=== PATIENT | male | born 1980 | race Caucasian/White ===

== ENCOUNTER 2020-11-03 22:15 | Emergency (ER) | payer OTHER ==
--- NOTE | 2020-11-03 22:43 | ER Document Report ---
ED Medical Screen (RME) - General Stated Complaint: POSSIBLE STROKE Time Seen by Provider: 11/03/20 22:40 Primary Care Provider: ELAINE RUBIO MD [Primary Care Provider] - Follow up as needed Notes: HPI: 40-year-old male with history of PTSD and anxiety presenting for varied complaints. Patient states that he felt very stressed 2 days ago, went out to sit in his truck. Patient significant other found him in the truck having jerking motions although he was communicative and not unresponsive. She states when he got inside he was crying and still twitching and jerking, seem to have difficulty speaking and communicating his thoughts. Patient states yesterday he just felt tired, today he just felt tired and slept most of the day. No fever no cough no shortness of breath no chest pain no abdominal pain no new weakness numbness or tingling in the extremities. Patient denies headache visual change today. No seizure history. PHYSICAL EXAMINATION: Patient answers all questions appropriately. No nystagmus. Gait is normal. Strength and sensation intact and equal bilateral upper and lower extremities I have greeted and performed a rapid initial assessment of this patient. A comprehensive ED assessment and evaluation of the patient, analysis of test results and completion of medical decision making process will be conducted by an additional ED providers. TRAVEL OUTSIDE OF THE [place] IN LAST 30 DAYS: No - Related Data Allergies/Adverse Reactions: No Known Allergies Allergy (Unverified 08/10/15 15:44) Past Medical History Neurological Medical History: Reports: Hx Migraine GI Medical History: Reports: Hx Gastroesophageal Reflux Disease, Hx Hiatal Hernia Psychiatric Medical History: Reports: Hx Anxiety, Hx Depression, Hx Post Traumatic Stress Disorder Past Surgical History: Reports: Hx Abdominal Surgery - GERD surgery - Immunizations Hx Diphtheria, Pertussis, Tetanus Vaccination: Yes - tetanus 2011 Physical Exam - Vital signs Vitals: Temp Pulse Resp BP Pulse Ox 98.5 F 100 20 145/79 H 99 11/03/20 22:29 11/03/20 22:29 11/03/20 22:29 11/03/20 22:29 11/03/20 22:29 Course - Vital Signs Vital signs: Temp Pulse Resp BP Pulse Ox 98.5 F 100 20 145/79 H 99 11/03/20 22:29 11/03/20 22:29 11/03/20 22:29 11/03/20 22:29 11/03/20 22:29 Doctor's Discharge - Discharge Referrals: ELAINE URBIO MD [Primary Care Provider] - Follow up as needed
[2020-11-03 23:06] LABS: ABSOLUTE EOSINOPHILS # (AUTO) 0.3 10^3/uL (0.0-0.6); ABSOLUTE LYMPHOCYTES (AUTO) 1.6 10^3/uL (0.5-4.7); ABSOLUTE MONOCYTES (AUTO) 0.3 10^3/uL (0.1-1.4); ABSOLUTE NEUT (AUTO) 3.8 10^3/uL (1.7-8.2); BASOPHILS % (AUTO) 0.8 % (0-2); EOSINOPHILS % (AUTO) 5.6 % (0-6); HEMOGLOBIN 14.1 g/dL (13.5-17.0); LYMPHOCYTES % (AUTO) 26.5 % (13-45); MEAN CORPUSCULAR HEMOGLOBIN 33.5 pg (27.0-33.4); MEAN CORPUSCULAR HGB CONC 34.5 g/dL (32.0-36.0); MEAN CORPUSCULAR VOLUME 97 fl (80-97); MONOCYTES % (AUTO) 4.7 % (3-13); PLATELET COUNT 289 10^3/uL (150-450); RED BLOOD COUNT 4.21 10^6/uL (4.35-5.55); RED CELL DISTRIBUTION WIDTH 13.1 % (11.5-14.0); SEGMENTED NEUTROPHILS % (AUTO) 62.4 % (42-78); TOTAL CELLS COUNTED % (AUTO) 100 %
[2020-11-03 23:22] LABS: APPEARANCE,URINE CLEAR; BILIRUBIN,URINE NEGATIVE (NEGATIVE); GLUCOSE, URINE NEGATIVE (NEGATIVE); KETONES,URINE TRACE mg/dL (NEGATIVE); LEUKOCYTE ESTERASE,URINE TRACE (NEGATIVE); NITRITE,URINE NEGATIVE (NEGATIVE); PROTEIN,URINE 100 mg/dL (NEGATIVE); URINE SPECIFIC GRAVITY 1.035
[2020-11-03 23:23] LABS: COLOR,URINE YELLOW
[2020-11-03 23:27] LABS: ALBUMIN 4.1 g/dL (3.5-5.0); ALKALINE PHOSPHATASE 72 U/L (38-126); ANION GAP 6 (5-19); ASPARTATE AMINO TRANSFERASE 26 U/L (17-59); BILIRUBIN,TOTAL 0.2 mg/dL (0.2-1.3); BLOOD UREA NITROGEN 13 mg/dL (7-20); CALCIUM 9.5 mg/dL (8.4-10.2); CARBON DIOXIDE 26 mmol/L (22-30); CHLORIDE 107 mmol/L (98-107); GLUCOSE 110 mg/dL (75-110); POTASSIUM 4.4 mmol/L (3.6-5.0); TOTAL PROTEIN 6.6 g/dL (6.3-8.2); URINE BARBITURATES SCREEN NEGATIVE; URINE COCAINE SCREEN NEGATIVE; URINE METHADONE SCREEN NEGATIVE; URINE PHENCYCLIDINE SCREEN NEGATIVE
[2020-11-03 23:29] LABS: ALCOHOL < 10 mg/dL (NONE DETECTED)
[2020-11-03 23:36] LABS: URINE BENZODIAZEPINES SCREEN UNCONFIRMED POSITIVE; URINE MARIJUANA (THC) SCREEN UNCONFIRMED POSITIVE
--- NOTE | 2020-11-03 23:36 | RADIOLOGY REPORT (SQ) ---
EXAM DESCRIPTION: CT HEAD WITHOUT IV CONTRAST COMPLETED DATE/TME: 11/03/2020 23:00 CLINICAL HISTORY: 40 years, Male, jerking motions EXAM DESCRIPTION: CT HEAD WITHOUT CLINICAL HISTORY: jerking motions COMPARISON: None Available TECHNIQUE: Contiguous axial CT images of the head were obtained. Coronal and sagittal reconstructions were created from the axial data. This exam was performed according to our departmental dose-optimization program, which includes automated exposure control, adjustment of the mA and/or kV according to patient size and/or use of iterative reconstruction technique. FINDINGS: There is moderate mucosal thickening in the right maxillary sinus. There is no evidence of acute mass, mass effect, midline shift or hemorrhage. The ventricles and extra-axial CSF spaces are unremarkable. The brain parenchyma appears normal for the patient's age. No acute abnormalities of the bones is seen. IMPRESSION: No acute intracranial abnormality.
[2020-11-04] MEDS ORDERED: THIAMINE HCL 100 MG, FOLIC ACID 1 MG in NORMAL SALINE 250 ML IV ONE (03:50)
[2020-11-04] MEDS ORDERED: NORMAL SALINE 1000 ML 1,000 ML IV ONE (03:51)
[2020-11-04] MEDS ORDERED: CLONAZEPAM 1 MG TABLET PO ONE (03:52)
[2020-11-04] MEDS ORDERED: THIAMINE HCL INJ 200 MG/2 ML VIAL ONE (04:05)
[2020-11-04] MEDS ORDERED: FOLIC ACID INJ 5 MG/1 ML 10 ML VIAL ONE (04:25)
--- NOTE | 2020-11-04 06:56 | ER Document Report ---
ED General - General Chief Complaint: Altered Mental Status Stated Complaint: POSSIBLE STROKE Time Seen by Provider: 11/03/20 22:40 Primary Care Provider: ELAINE RUBIO MD [Primary Care Provider] - Follow up in 1 week GLENYS KING DO [ACTIVE STAFF] - Follow up in 1 week Notes: 40-year-old male history of heavy daily drinking presents with seizure like episode approximately 1 day. Patient recently decreased his alcohol intake, had previously consumed approximately 1 12 pack of beer every day chronically. Befo re episode patient felt a strange sensation that he cannot further describe and then he felt like his arms were moving without his control which lasted for few minutes. After that he felt "foggy "and has felt somewhat tired for the last few days. Patient endorses having had a brief mild headache for short time on the day that he had the seizure-like episode but says that this is like many headaches that he has had in his lifetime and was not alarming to him and had no associated symptoms and resolved without intervention. Patient also endorses having had months of intermittent feeling like a sharp pain is shooting down his left arm associated with numbness in his arm. Patient denies any prior seizure episodes, headache, focal weakness, neck pain or stiffness, fever, trauma, chest pain, shortness of breath, memory loss, change in vision/speech/gait, anticoagulation, bleeding diatheses, IV drug use TRAVEL OUTSIDE OF THE [place] IN LAST 30 DAYS: No - Related Data Allergies/Adverse Reactions: No Known Allergies Allergy (Unverified 08/10/15 15:44) Home Medications: depakote, sertraline Past Medical History - General Information source: Patient, Relative - Social History Smoking Status: Never Smoker Family History: Arthritis, Hyperlipidemia, Hypertension, Malignancy Neurological Medical History: Reports: Hx Migraine GI Medical History: Reports: Hx Gastroesophageal Reflux Disease, Hx Hiatal Hernia Psychiatric Medical History: Reports: Hx Anxiety, Hx Depression, Hx Post Traumatic Stress Disorder Past Surgical History: Reports: Hx Abdominal Surgery - GERD surgery - Immunizations Hx Diphtheria, Pertussis, Tetanus Vaccination: Yes - tetanus 2011 Review of Systems - Review of Systems Notes: REVIEW OF SYSTEMS: CONSTITUTIONAL : Denies fever, chills, or sweats. EENT: Denies recent cold/sinus symptoms, denies throat pain CARDIOVASCULAR: Denies chest pain, WILLIAM RESPIRATORY: Denies cough, denies shortness of breath. GASTROINTESTINAL: Denies abdominal pain, nausea/vomiting. GENITOURINARY: Denies difficulty urinating, painful urination. MUSCULOSKELETAL: Denies neck pain, back pain. SKIN: Denies rash or skin lesions. HEMATOLOGIC : Denies easy bruising or bleeding. LYMPHATIC: Denies swollen, enlarged glands. NEUROLOGICAL: Denies headache, denies change in gait. PSYCHIATRIC: Denies SI or HI Physical Exam - Vital signs Vitals: Temp Pulse Resp BP Pulse Ox 98.5 F 100 20 145/79 H 99 11/03/20 22:29 11/03/20 22:29 11/03/20 22:29 11/03/20 22:29 11/03/20 22:29 - Notes Notes: PHYSICAL EXAMINATION: GENERAL: Well-appearing, well-nourished and in no acute distress. HEAD: Atraumatic, normocephalic. EYES: Pupils equal round and appropriate constriction, sclera anicteric, conjunctiva are normal. ENT: nares patent, moist mucous membranes. NECK: Normal range of motion, supple without lymphadenopathy LUNGS: Breath sounds clear to auscultation bilaterally and equal. No wheezes rales or rhonchi. HEART: Regular rate and rhythm without murmurs ABDOMEN: Soft, nontender, no guarding, no masses, no CVAT EXTREMITIES: Normal range of motion, no pitting or edema. No cyanosis. NEUROLOGICAL: Awake, alert, conversing appropriately, moves all extremities spontaneously, 5 out of 5 strength in all extremities, normal sensation in all extremities, normal [id number] bilaterally, cranial nerves II through XII intact bilaterally, steady non-ataxic narrow-based gait and tandem gait, no trem ors with outstretched hands or finger to finger, no tongue fasciculations, no psychomotor agitation PSYCH: Normal mood, normal affect. SKIN: Warm, Dry, normal turgor, no rashes or lesions noted. Course - Re-evaluation Re-evalutation: 11/04/20 08:30 Patient presents approximately 1 day after seizure-like episode without loss of consciousness. Symptoms were preceded by a decrease in his alcohol intake. No signs of alcohol withdrawal in the ED and no neuro deficits. Patient has had shooting pain down his arm with numbness but this has been chronic for several months and pain was precipitated by patient leaning had to left side consistent with radicular pain but without any signs of cord compression. Gave patient extensive instructions on avoiding alcohol cessation without medical help and gave patient referral to outpatient detox. Patient did not want inpatient detox or admission at this time. Gave patient extensive procedure precautions which he demonstrated understanding of. Patient was on alcohol withdrawal at time of discharge and was given information to follow-up at [facility] and given alternate resources. - Vital Signs Vital signs: Temp Pulse Resp BP Pulse Ox 97.4 F 58 L 14 108/85 100 11/04/20 07:15 11/04/20 07:15 11/04/20 07:15 11/04/20 07:15 11/04/20 07:15 - Laboratory Result Diagrams: 11/03/20 22:50 11/03/20 22:50 Laboratory results interpreted by me: 11/03/20 11/03/20 22:50 22:50 RBC 4.21 L MCH 33.5 H Urine Protein 100 H Urine Ketones TRACE H Urine Urobilinogen 2.0 H Ur Leukocyte Esterase TRACE H - EKG Interpretation by Me Additional EKG results interpreted by me: 11/04/20 08:34 Sinus rhythm, no significant ST elevations or depressions, no significant T wave abnormalities Discharge - Discharge Clinical Impression: Seizure Alcohol dependency Qualifiers: Substance use status: unspecified alcohol-induced disorder Qualified Code(s): F10.29 - Alcohol dependence with unspecified alcohol-induced disorder Disposition: HOME, SELF-CARE Additional Instructions: Alcohol Withdrawal Your symptoms are caused by alcohol withdrawal. After a period of frequent drinking, the brain and body are changed by the alcohol. When you quit or reduce your drinking, the nervous system becomes unstable. Withdrawal symptoms can start a few hours after your last drink, but sometimes don't begin until a couple of days later. Symptoms can include shakiness, sweating, insomnia, nausea, vomiting, fearfulness, hallucinations, and seizures. In addition to the acute effects of alcohol withdrawal, we often have to deal with the medical effects of alcoholism. These problems often include dehyd ration, stomach irritation, intestinal bleeding, low blood sugar, liver disease, and pancreas inflammation. Treatment for alcohol withdrawal includes mild sedatives, vitamins, and fluids. You need to be with someone who can help if symptoms become severe. Many patients can withdraw at home. Admission to the hospital or a detox facility may be necessary if withdrawal symptoms are severe and uncontrollable. Abstaining from alcohol is the only effective long-term treatment. If you start drinking again, you will not be able to control yourself after the first drink. Treatment programs are available. In addition, many alcoholics benefit from Alcoholics Anonymous or other support groups available through your counselor or mandaeism diabetic educator. [facility] and [employer] are support groups for fri ends and family members of an alcoholic. Go to the emergency room if you develop persistent vomiting, severe abdominal pain, fever, shortness of breath, hallucinations, uncontrollable tremors, or seizures. Seizure You have had a seizure. Seizure disorders (epilepsy) of one sort or anoth er affect about one out of 50 people. The seizure occurs because of abnormal electrical activity in the brain. Seizures may be due to drugs and alcohol, strokes, brain injury, or infection. In the most common form of epilepsy, no cause can be found. You will require further evaluation to determine the cause of your seizure, and to determine whether anti-seizure medication is required. This follow-up testing is important, so please call us if you encounter problems with scheduling of yeimy ts or appointments. YOU SHOULD NOT DRIVE until released to do so by your physician. The law req uires that seizures be reported to the public transit bus driver's license bureau--a seizure while driving could be catastrophic. Call the doctor if seizures recur, or if you develop new symptoms such as fever, severe headache, stiff neck, confusion or increasing sleepiness, weakness or numbness, or visual problems. Follow-up today for outpatient detox. Refer to the list of numbers for detox facilities that you were given in the ED. If you have any tremors, additional seizures, fever, vomiting, confusion, neck pain or stiffness, or any other worsening or alarming symptoms return to the emergency department immediately. [facility] [phone]. Referrals: ELAINE RUBIO MD [Primary Care Provider] - Follow up in 1 week GLENYS KING DO [ACTIVE STAFF] - Follow up in 1 week
[2020-11-04 07:14] VITALS: BP 108/85
--- NOTE | 2020-11-04 17:52 | EKG REPORT ---
SEVERITY:- ABNORMAL ECG - SINUS RHYTHM LEFT ATRIAL ABNORMALITY : Confirmed by: George Mohamud 04-Nov-2020 17:50:33
== END 2020-11-04 07:16 | disposition home or self-care (01) ==
LOC: ER 22:15
DX: R56.9 Unspecified convulsions (principal); F10.29 Alcohol dependence with unspecified alcohol-induced disorder; R41.82 Altered mental status, unspecified; R51.9 Headache, unspecified; M79.602 Pain in left arm; R20.0 Anesthesia of skin; Z79.899 Other long term (current) drug therapy
CPT/HCPCS: 93005; 99285; 96365; 36415; 80307 ×2; 85025; 80053; 81001; 70450; 93010; J3490; J3411; J7030; J7050